=== PATIENT | male | born 1945 | race Caucasian/White ===

== ENCOUNTER 2016-02-14 06:54 | Day surgery (SDC) | payer MEDICARE ==
[~2016-02-14] VITALS: Ht 175.3 cm; Wt 106.0 kg
[~2016-02-14 06:54] MED LIST: ACETAMINOPHEN 500 MG TAB (TYLENOL) PO PRN; SODIUM CHLORIDE FLUSH 3 ML SYR IV PRN; diphenhydrAMINE 50 MG/ML INJ (BENADRYL) IV PRN
[2016-02-14] MEDS ORDERED: EPINEPHrine 1MG/ML (1:1000) 1 ML AMPUL (ADRENALIN) ONE (07:01)
[2016-02-14] MEDS ORDERED: VANCOMYCIN 500 MG VIAL ONE (07:01)
[2016-02-14] MEDS ORDERED: BSS OPHTHALMIC IRRIGATION SOLUTION 15 ML BTL ONE (07:01)
[2016-02-14] MEDS ORDERED: LIDOCAINE PF 1% (XYLOCAINE) 30 ML VIAL INJ ONE (07:02)
[2016-02-14] MEDS ORDERED: POVIDONE-IODINE 5% OPHTHALMIC SOLUTION (BETADINE PREP) 30 ML BTL ONE (07:02)
[2016-02-14] MEDS ORDERED: CHONDROITIN/HYALURONATE (DISCOVISC) 1 ML SYR IO ONE (07:03)
[2016-02-14] MEDS ORDERED: PHENYLEPHRINE/KETOROLAC 4 ML VIAL IO ONE (07:03)
[2016-02-14] MEDS ORDERED: TETRACAINE 0.5% OPHTHALMIC SOLUTION 2 ML BTL ONE (07:03)
[2016-02-14] MEDS ORDERED: ACETYLCHOLINE CHLORIDE 20 MG/2 ML KIT IO ONE ×2 (07:03→09:06)
[2016-02-14 07:09] VITALS: BP 144/87
[2016-02-14] MEDS: LIDOCAINE 3.5% OPHTH GEL (AKTEN) 1 ML BTL OS SCH ×4 (07:25→07:58)
[2016-02-14] MEDS: CATARACT PRE-OP EYE DROPS 0.5ML SYRINGE OS SCH ×4 (07:37→08:23)
[2016-02-14] MEDS: HOME MEDICATION OS SCH ×3 (07:37→07:58)
[2016-02-14] MEDS ORDERED: MIDAZOLAM 2 MG/2 ML (VERSED) VIAL ONE ×3 (08:22→10:45)
[2016-02-14] MEDS ORDERED: SODIUM CHLORIDE VIAL (PF) 10 ML IV ONE (08:35)
[2016-02-14] MEDS ORDERED: ALFENTANIL 1,000 MCG/2 ML AMP IV ONE ×2 (08:37→10:44)
[2016-02-14] MEDS ORDERED: CHONDROITIN/HYALURONATE (VISCOAT) 0.5 ML SYR IO ONE (08:47)
--- NOTE | 2016-02-14 09:57 | NUR ---
PATIENT SPOUSE BACK IN ROOM WITH PATIENT. VIGAMOX GIVEN TO PATIENT AND FAMILY. Osei.WENDY WITNESSES.
== END 2016-02-14 10:06 | disposition home or self-care (01) ==
LOC: ASC 06:54
PROVIDERS: ATTEND Ophthalmology
PROC: 08RK3JZ Replacement of Left Lens with Synthetic Substitute, Percutaneous Approach (ICD-10-PCS; principal; 2016-02-14)
DX: H26.9 Unspecified cataract (principal); H53.8 Other visual disturbances; E03.9 Hypothyroidism, unspecified
CPT/HCPCS: 66984; A9270; C9447; J0171; J2001; J2250; J3370; J7050; V2632

== ENCOUNTER 2016-03-06 09:07 | Day surgery (SDC) | payer MEDICARE ==
[~2016-03-06] VITALS: Ht 175.3 cm; Wt 105.5 kg
[2016-03-06 10:10] VITALS: BP 155/90
[2016-03-06] MEDS: LIDOCAINE 3.5% OPHTH GEL (AKTEN) 1 ML BTL OD SCH ×3 (10:13→10:36)
[2016-03-06] MEDS ORDERED: SODIUM CHLORIDE FLUSH 3 ML SYR IV PRN (10:25)
[2016-03-06] MEDS ORDERED: ACETAMINOPHEN 500 MG TAB (TYLENOL) PO PRN (10:25)
[2016-03-06] MEDS ORDERED: diphenhydrAMINE 50 MG/ML INJ (BENADRYL) IV PRN (10:25)
[2016-03-06] MEDS: CATARACT PRE-OP EYE DROPS 0.5ML SYRINGE OD SCH ×2 (10:27→10:36)
[2016-03-06] MEDS: HOME MEDICATION OD SCH ×2 (10:27→10:36)
[2016-03-06 11:53] VITALS: BP 125/82
== END 2016-03-06 12:17 | disposition home or self-care (01) ==
LOC: ASC 09:07
PROVIDERS: ATTEND Ophthalmology
DX: H25.11 Age-related nuclear cataract, right eye (principal); E03.9 Hypothyroidism, unspecified
CPT/HCPCS: 66984; A9270; V2632